=== PATIENT | female | born 2000 | race American Indian/Alaskan Native ===

== ENCOUNTER 2024-11-22 06:09 | Emergency (ER) | payer MEDICAID, SELFPAY ==
[2024-11-22 06:10] VITALS: BP 115/74; PULSE 78; RESP 20; TEMP 37.2; O2SAT 96; BMI 25.6
--- NOTE | 2024-11-22 06:33 | XR_ITS ---
Examination: Ribs, right, unilateral 3 views TECHNIQUE: AP, RPO and LPO right ribs 3 views. Exam date and time: November 22, 2024, 0758 hours INDICATIONS: Patient fell 5 days ago with injury to the right chest, right rib pain. Findings: No pneumothorax. No acute rib fractures IMPRESSION: No pneumothorax pulmonary contusion or hemothorax. No acute rib fractures.
--- NOTE | 2024-11-22 06:33 | PD.EDBACK ---
ED Back Injury Pain RME/HPI General Chief Complaint: Back Pain/Injury Stated Complaint: FALL MULTIPLE COMPLAINTS Time Seen by Provider: 11/22/24 06:21 Source: patient Arrival date/time: 11/22/24 06:09 Mode of arrival: ambulatory Limitations: no limitations RME / HPI RME / HPI Narrative: [place] she [place] and fell hitting her head, her right ribs, and her right hip. Also complains of low back pain. This occurred Tuesday of last week. Patient denies LOC and complains of being dazed upon hitting her head. MD Complaint: back pain, back injury and fall Onset (ago): day(s) (6 days ago) Duration: intermittent Similar Symptoms Previously: No Severity: moderate Radiation: groin (Right hip to right groin) and flank (Right flank) Severity scale (1-10): 5 Relieving factors: immobilization and medication Exacerbating factors: movement Context: fall Related Data Previous Rx's ?Medication ?Instructions ?Recorded docusate sodium 100 mg capsule 100 mg PO BID #60 caps 10/13/22 (Colace) ferrous sulfate 325 mg (65 mg 325 mg PO TID Anemia #90 tabs 10/13/22 iron) tablet ibuprofen 800 mg tablet 800 mg PO Q6H PRN pain #90 tabs 10/13/22 lanolin 50 % topical ointment 1 applic topical TID PRN skin 10/13/22 irritation #15 tubes cyclobenzaprine 10 mg tablet 10 mg PO HS PAIN #20 tabs 11/22/24 cyclobenzaprine 10 mg tablet 10 mg PO TID PAIN #20 tabs 11/22/24 naproxen 500 mg tablet 500 mg PO BID #20 tabs 11/22/24 naproxen 500 mg tablet 500 mg PO BID PAIN #20 tabs 11/22/24 Allergies Allergy/AdvReac Type Severity Reaction Status Date / Time No Known Allergies Allergy Verified 11/22/24 06:15 Review of Systems Constitutional Constitutional: Reports system reviewed and no additional complaints, except as documented Eyes Eyes: Reports system reviewed and no additional complaints, except as documented, Denies dry eyes, Denies exophthalmos and Reports floaters Cardiovascular Cardiovascular: Denies chest pain with activity and Denies claudication ED Exam Narrative Physical exam: Straight leg raises are negative for radiculopathy positive for low back pain upon straight leg raises right lower extremity left lower extremity negative for low back pain. Patient is able to flex at the waist misses the floor by approximately 2 feet. There is ecchymoses at the area of the right lateral hip. There is decreased range of motion secondary to subjective pain of the right hip and that the patient cannot cross her legs over to the left lower extremity. The low back demonstrates no apparent trauma and the spine is midline. It is tender to touch right of spine. The left ribs are tender to palpation and there is no apparent crepitus or emphysema present. General Limitations: Present no limitations General appearance: Present alert and in no apparent distress Head Head exam: Present other (There is ecchymoses at the right frontal area right of midline. There is no apparent step-off and there is mild edema.) Eye Eye exam: Present normal appearance, PERRL and EOMI ENT ENT exam: Present normal exam, normal oropharynx and mucous membranes moist Neck Neck exam: Present normal inspection, full ROM and trachea midline Chest Chest inspection: Present normal inspection and symmetric chest wall rise Abdominal Exam Abdominal exam: Present soft and normal bowel sounds Extremities Exam Extremities exam: Present normal inspection (As described above) and full ROM (As described above) Back Exam Back exam: Present normal inspection and full ROM (As described above) Neurological Exam Neurological exam: Present alert and oriented X3 Psychiatric Psychiatric exam: Present normal affect and normal mood Skin Skin exam: Present warm, dry, intact and normal color Course Course Course Narrative: LS-spine x-ray, right hip x-ray, right rib x-ray, hCG, Quality Measures none Orders Category Date Time Status CT head/brain wo con Stat Exams 11/22/24 07:03 Completed CXR2 [XR chest 2V] Stat Exams 11/22/24 07:03 Completed XR hip RT w pelvis 2-3V Stat Exams 11/22/24 06:34 Completed XR ribs RT 2V Stat Exams 11/22/24 06:33 Completed HCG Qualitative,Urine Stat Lab 11/22/24 06:50 Completed Acetaminophen Tab [Tylenol Tab] Med 11/22/24 07:04 Discontinued 650 mg PO X1 ONE Ketorolac Inj [Toradol Inj] Med 11/22/24 07:23 Discontinued 30 mg IM X1 ONE ORDERED Reevaluation(s) Reevaluation #1: NA Vital Signs Vital signs: Vital Signs Temperature 99.0 F 11/22/24 06:10 Pulse Rate 78 11/22/24 06:10 Respiratory Rate 20 11/22/24 06:10 Blood Pressure 115/74 11/22/24 06:10 Pulse Oximetry (%) 96 11/22/24 06:10 Oxygen Delivery Method Room Air 11/22/24 06:10 Pulse ox room air is 96% Back Pain / Injury MDM Narrative MDM Narrative:: CT of the head is negative, x-ray of the right ribs negative, x-ray of the right hip negative, patient will be discharged no apparent distress and I will send Toby to the pharmacy of her choice. She has to follow-up with primary care physician within a week of today's visit. Patient data External records reviewed:: Other (specify) (Na) Clinical information provided by:: patient Social determinants that could affect healthcare access:: none (na) Patient has the following chronic illnesses:: Patient has no chronic illness How is presenting disease/condition affected by chronic disease/condition?: caused by (Fall) Evaluation data The following diagnostics were reviewed and interpreted by me:: radiology exam(s) Lab and/or radiology exams considered but not ordered:: Radiology exams are negative for any acute processes Interpretation Summary: Contusion right hip, contusion right ribs, contusion head. Medications / Prescriptions Medications or Prescriptions considered but not ordered:: A Medication administrations:: Medication Administration History Discontinued Medications Acetaminophen (Acetaminophen 325 Mg Tablet) 650 mg PO X1 ONE Stop: 11/22/24 07:05 Last Admin: 11/22/24 07:34 Dose: 650 mg Documented By: ED Ketorolac Tromethamine (Ketorolac Inj 60 Mg/2 Ml Vial) 30 mg IM X1 ONE Stop: 11/22/24 07:24 Last Admin: 11/22/24 07:35 Dose: 30 mg Documented By: ED DONE Consultations Consultation(s) initiated? (list below): No Diagnosis Most likely diagnosis given after review of the tests above:: DONE Admission Indicated Admission indicated?: not indicated Explain why admission is indicated or not indicated:: NA Admission Request Was there a request for admission?: No Disposition Plan Disposition Plan: Discharge Discharge Attestation Discharge Attestation: The patient and all family members were given an opportunity to ask questions and understood the discharge instructions. Discharge instructions specifically effects, indications for sooner follow up or return to the emergency department, and the expected course of current diagnosis. Patient condition: Stable Discharge Plan Plan Patient Disposition: HOME (Self Care) Discharge Disposition comment: Patient to be discharged in no apparent distress Patient condition on transfer: Stable Prescriptions/Referrals Prescriptions/Med Rec: New naproxen 500 mg tablet 500 mg PO BID Qty: 20 0RF naproxen 500 mg tablet 500 mg PO BID Qty: 20 0RF cyclobenzaprine 10 mg tablet 10 mg PO HS Qty: 20 0RF cyclobenzaprine 10 mg tablet 10 mg PO TID Qty: 20 0RF No Action ferrous sulfate 325 mg (65 mg iron) tablet 325 mg PO TID Qty: 90 0RF docusate sodium [Colace] 100 mg capsule 100 mg PO BID Qty: 60 0RF ibuprofen 800 mg tablet 800 mg PO Q6H MDD 4 PRN (Reason: pain) Qty: 90 0RF lanolin 50 % ointment 1 applic topical TID PRN (Reason: skin irritation) Qty: 15 0RF Referrals: Kinga Langley PA-C ([facility]) [Primary Care Provider] - In 1 week Problem List Clinical Impression: Contusion of head, Contusion of hip, Contusion of rib Patient/Caregiver Discharge Instructions Discharge Activity: activity as tolerated Print Language: Bulgarian Stand Alone Forms: Missy Award Info., Patient Portal Info Letter HANG/RUBIN Supervising Physician HANG/RUBIN Supervising Physician: WILMAR
--- NOTE | 2024-11-22 06:34 | XR_ITS ---
Examination:Right hip AP, lateral, AP pelvis 3 views Technique: Hip AP lateral, AP pelvis, 3 views Exam date and time:November 22, 2024, 0758 hours INDICATIONS: Patient fell 5 days ago with injury to the right hip, right hip pain. FINDINGS: No right hip fracture or dislocation Left hip bones of the pelvis intact IMPRESSION: No acute hip or pelvic fracture.
--- NOTE | 2024-11-22 07:03 | XR_ITS ---
Examination: PA lateral chest 2 views TECHNIQUE: Upright PA and lateral chest 2 views Date and time: November 22, 2024, 0759 hours INDICATIONS: Patient fell 5 days ago with injury to the chest, chest pain. FINDINGS: Normal heart size. No pneumothorax. The lungs are clear. Clavicles ribs thoracic vertebral bodies are intact IMPRESSION: No pneumothorax pulmonary contusion or hemothorax
--- NOTE | 2024-11-22 07:03 | XR_ITS ---
Examination: CT brain head without contrast. 2-D sagittal coronal reconstructions Date and time of exam:November 22, 2024, 0716 hours Patient fell 5 days ago with injury to the head, head pain CTDI: vol (mGy):43.1 DLP: (mGycm):801 Technique: Multiple CT axial sections of the brain have been obtained, 5 mm slice thickness. Contrast has not been administered. 2-D sagittal, coronal reconstructions have been obtained Low dose protocols were performed. One or more of the following dose reduction techniques were used; automated exposure control, adjustment of the mA and/or KV according to patient size, use of iterative reconstruction technique. Findings: No significant ventricular enlargement. Soft tissue swelling right forehead Intra-axial or extra-axial hemorrhage density is not seen. No mass effect or midline shift Basal cisterns are not remarkable. Fourth ventricle is midline. Cranial vault intact. Impression: Negative for acute hemorrhage, mass effect or midline shift
[2024-11-22 07:17] LABS: HCG Qualitative,Urine Negative
[2024-11-22] MEDS: ACETAMINOPHEN 325 MG TABLET 650 MG PO (07:34)
[2024-11-22] MEDS: KETOROLAC INJ 60 MG/2 ML VIAL 30 MG IM (07:35)
== END 2024-11-22 09:31 | disposition home or self-care (01) ==
PROVIDERS: Physician Assistant; Emergency Provider Emergency Medicine; PCP Nurse Practitioner Family
DX: S20.211A Contusion of right front wall of thorax, initial encounter (principal); S00.93XA Contusion of unspecified part of head, initial encounter; S70.01XA Contusion of right hip, initial encounter; M54.50 Low back pain, unspecified; W01.198A Fall on same level from slipping, tripping and stumbling with subsequent striking against other object, initial encounter
CPT/HCPCS: 70450; 71046; 71100; 73502; 81025; 96372; 99283; J1885; A9270